=== PATIENT | male | born 1965 | race Hispanic/Latino ===

== ENCOUNTER 2020-02-07 11:14 | Inpatient (IN) | payer BC, OTHER ==
[2020-02-03 09:54] LABS: BASOPHILS % 0.2 % (0.0-1.0); EOSINOPHILS % 0.5 % (0.0-6.0); HEMOGLOBIN 13.5 g/dL (14.0-18.0); LYMPHOCYTES # (AUTO) 1.4 (1.0-3.2); LYMPHOCYTES % 21.8 % (18.0-39.1); MEAN CORPUSCULAR HGB CONC 33.8 g/dL (31-35); MEAN CORPUSCULAR VOLUME 88.9 fL (81-99); MONOCYTES # (AUTO) 0.6 (0.2-0.8); NEUTROPHILS # (AUTO) 4.4 (2.1-6.9); NEUTROPHILS % 67.9 % (38.7-80.0); PLATELET COUNT 239 x10e3/uL (140-360); RED CELL DISTRIBUTION WIDTH 12.5 % (11.7-14.4)
[2020-02-03 10:16] LABS: ANION GAP 14.8 mmol/L (8-16); BLOOD UREA NITROGEN 13 mg/dL (7-26); BUN/CREATININE RATIO 15 (6-25); CALCIUM 9.6 mg/dL (8.4-10.2); CARBON DIOXIDE 24 mmol/L (22-29); CHLORIDE 105 mmol/L (98-107); CREATININE, SERUM 0.86 mg/dL (0.72-1.25); EST GLOMERULAR FILTRATION RATE > 60 ML/MIN (60-); GLUCOSE 95 mg/dL (74-118); POTASSIUM 3.8 mmol/L (3.5-5.1); SODIUM 140 mmol/L (136-145)
[2020-02-07] VITALS (8 sets, daily range): BP systolic 141–158; BP diastolic 82–86
[~2020-02-07] VITALS: Ht 175.3 cm; Wt 101.2 kg
[~2020-02-07 11:14] MED LIST: B&O 60MG R/S 60 MG SUPP PR ONE; BICALUTAMIDE50 MG PO; CEFTRIAXONE SOD 1 GM/NS 50 ML 50 ML IV ONE; FLOMAX0.4 MG PO; GENTAMICIN 80MG/NS 100 ML 200 ML IV ONE; IOPAMIDOL 300MG/ML 50ML INFUS..BTL IV ONE; SODIUM CHLORIDE 0.9% 1000ML 1,000 ML ONE
[2020-02-07] MEDS ORDERED: ACETAMINOPHEN 1000 MG/100 ML IV PRN (13:15)
[2020-02-07] MEDS ORDERED: ONDANSETRON HCL INJ 2MG/ML 2ML 2 MG/ML VIAL IV PRN (13:15)
[2020-02-07] MEDS ORDERED: DIPHENHYDRAMINE HCL 25 MG CAP PO PRN (13:15)
[2020-02-07] MEDS ORDERED: B&O 60MG R/S 60 MG SUPP PR PRN (13:15)
[2020-02-07 14:03] LABS: BASOPHILS % 0.3 % (0.0-1.0); EOSINOPHILS % 0.4 % (0.0-6.0); HEMATOCRIT 36.5 % (38.2-49.6); HEMOGLOBIN 11.8 g/dL (14.0-18.0); LYMPHOCYTES # (AUTO) 1.6 (1.0-3.2); LYMPHOCYTES % 15.4 % (18.0-39.1); MEAN CORPUSCULAR HEMOGLOBIN 29.6 pg (28-32); MEAN CORPUSCULAR HGB CONC 32.3 g/dL (31-35); MEAN CORPUSCULAR VOLUME 91.5 fL (81-99); MONOCYTES # (AUTO) 0.5 (0.2-0.8); MONOCYTES % 4.5 % (4.4-11.3); NEUTROPHILS # (AUTO) 8.4 (2.1-6.9); NEUTROPHILS % 78.9 % (38.7-80.0); PLATELET COUNT 187 x10e3/uL (140-360); RED BLOOD COUNT 3.99 x10e6/uL (4.3-5.7); RED CELL DISTRIBUTION WIDTH 12.5 % (11.7-14.4)
[2020-02-07 14:20] LABS: ANION GAP 13.6 mmol/L (8-16); BLOOD UREA NITROGEN 9 mg/dL (7-26); BUN/CREATININE RATIO 11 (6-25); CALCIUM 7.2 mg/dL (8.4-10.2); CARBON DIOXIDE 20 mmol/L (22-29); CHLORIDE 112 mmol/L (98-107); CREATININE, SERUM 0.82 mg/dL (0.72-1.25); EST GLOMERULAR FILTRATION RATE > 60 ML/MIN (60-); GLUCOSE 102 mg/dL (74-118); POTASSIUM 3.6 mmol/L (3.5-5.1); SODIUM 142 mmol/L (136-145)
[2020-02-07] MEDS ORDERED: DEXAMETHASONE SOD PHOS INJ 4 MG/ML VIAL ONE (14:20)
[2020-02-07] MEDS ORDERED: ONDANSETRON HCL INJ 2MG/ML 2ML 2 MG/ML VIAL ONE (14:20)
[2020-02-07] MEDS ORDERED: LIDOCAINE HCL 2% LOCAL INJ 5 ML SDV VIAL INJ ONE (14:20)
[2020-02-07] MEDS ORDERED: SEVOFLURANE INHAL SOLN 250 ML PEN BTL ONE (14:20)
[2020-02-07] MEDS ORDERED: ETOMIDATE 2 MG/ML 10 ML INJ IV ONE (14:20)
[2020-02-07] MEDS ORDERED: ACETAMINOPHEN/CODEINE 300MG - 30MG TAB ONE (16:14)
[2020-02-07] MEDS: DOCUSATE SODIUM 100 MG CAP PO SCH (18:46)
[2020-02-07] MEDS: D5.45%NS/KCL 20MEQ 1,000 ML IV SCH (18:46)
[2020-02-07] MEDS ORDERED: MIDAZOLAM HCL 2 MG/2 ML VIAL ONE (20:08)
[2020-02-07] MEDS ORDERED: FENTANYL CITRATE/PF 100MCG/2 ML INJ ONE (20:08)
[2020-02-07] MEDS: PHENAZOPYRIDINE HCL 100 MG TAB PO PRN (20:28)
[2020-02-07] MEDS: ACETAMINOPHEN/CODEINE 300MG - 30MG TAB PO PRN (20:28)
[2020-02-08] VITALS (11 sets, daily range): BP systolic 115–145; BP diastolic 78–88
[2020-02-08] MEDS: D5.45%NS/KCL 20MEQ 1,000 ML IV SCH (03:17)
[2020-02-08] MEDS: ACETAMINOPHEN/CODEINE 300MG - 30MG TAB PO PRN ×2 (03:20→21:59)
[2020-02-08 05:43] LABS: BASOPHILS % 0.2 % (0.0-1.0); HEMATOCRIT 37.9 % (38.2-49.6); HEMOGLOBIN 12.4 g/dL (14.0-18.0); LYMPHOCYTES # (AUTO) 1.2 (1.0-3.2); MEAN CORPUSCULAR HEMOGLOBIN 29.6 pg (28-32); MEAN CORPUSCULAR HGB CONC 32.7 g/dL (31-35); MEAN CORPUSCULAR VOLUME 90.5 fL (81-99); MONOCYTES # (AUTO) 0.9 (0.2-0.8); MONOCYTES % 8.4 % (4.4-11.3); NEUTROPHILS # (AUTO) 8.4 (2.1-6.9); NEUTROPHILS % 79.9 % (38.7-80.0); PLATELET COUNT 213 x10e3/uL (140-360); RED BLOOD COUNT 4.19 x10e6/uL (4.3-5.7); RED CELL DISTRIBUTION WIDTH 12.6 % (11.7-14.4)
[2020-02-08 05:53] LABS: BLOOD UREA NITROGEN 12 mg/dL (7-26); BUN/CREATININE RATIO 15 (6-25); CALCIUM 8.1 mg/dL (8.4-10.2); CARBON DIOXIDE 20 mmol/L (22-29); CHLORIDE 107 mmol/L (98-107); CREATININE, SERUM 0.82 mg/dL (0.72-1.25); EST GLOMERULAR FILTRATION RATE > 60 ML/MIN (60-); GLUCOSE 113 mg/dL (74-118); SODIUM 137 mmol/L (136-145)
[2020-02-08] MEDS: DOCUSATE SODIUM 100 MG CAP PO SCH ×2 (08:26→17:27)
[2020-02-08] MEDS: TAMSULOSIN HCL 0.4 MG CAP PO SCH (09:56)
[2020-02-08] MEDS: SODIUM CHLORIDE 0.9% 1000ML 1,000 ML IV SCH ×2 (09:56→21:56)
[2020-02-08] MEDS: CEFTRIAXONE SOD 1 GM/NS 50 ML 50 ML IV SCH (12:54)
[2020-02-08] MEDS: BICALUTAMIDE 50 MG TABLET PO SCH (13:43)
--- NOTE | 2020-02-08 15:20 | History and Physical ---
The patient is status post TURP procedures secondary to enlarged prostate, incomplete emptying of the prostate with history of prostate cancer. SUMMARY: The patient is a 54 years old male with history of prostate cancer. The patient is on treatment. His prostate is enlarging. The patient has urinary retention and also nocturia with recurrent urinary tract infection. He has increase in PSA too as well. The patient is now status post TURP procedures and postoperatively the patient continued with urinary bladder irrigation. The patient is admitted for continue with treatment. PAST MEDICAL HISTORY: Prostate cancer and enlarged prostate. PAST SURGICAL HISTORY: Noncontributory. SOCIAL HISTORY: The patient does not smoke or use alcohol. No regular drug. ALLERGIES: NO KNOWN ALLERGIES. HOME MEDICATIONS: Flomax and Casodex. PHYSICAL EXAMINATION: VITAL SIGNS: Temperature 98, blood pressure 145/78, pulse rate is 42, and respiration 18. GENERAL: The patient is not in acute distress. He is awake. HEENT: Normocephalic and atraumatic. Anicteric. NECK: Supple grossly. PULMONARY: Diminished breath sounds without any wheezing or rales. CARDIOVASCULAR: S1, S2. Bradycardia, asymptomatic. ABDOMEN: Soft, nontender, non-distention. The patient has a Simmons catheter in place. The patient has continuous urinary bladder irrigation. EXTREMITIES: No cyanosis or edema. NEUROLOGIC: No focal deficit. LABORATORY DATA: Sodium is 137, potassium 4, chloride 107, bicarb 20, BUN 12, creatinine 0.8, glucose 113. WBC is 10.5, hemoglobin 12.4, hematocrit 38, platelets 213,000. IMPRESSION: 1. Status post TURP. 2. Urinary retention with recurrent infection and incomplete evacuation of urine with nocturia. 3. Prostate cancer ongoing treatment. 4. Asymptomatic bradycardia. PLAN: Continue to monitor the patient postop. Change IV fluid normal saline. Check the patient's lab work in the morning. Continue with urinary bladder irrigation. Resume home medication. Monitor the heart rate. MD XIMENA Dawson/EDL /[id number]
--- NOTE | 2020-02-08 19:00 | NUR ---
BSSR RECEIVED FROM FELY CHAND, PATIENT AOX4, THREE WAY PLASENCIA PATENT CONTINUES ON CBI, TOLERATING WELL, URINE LIGHT ORANGE COLORED AT THIS TIME, PT DENIES PAIN/DISCOMFORT AT THIS TIME CALL LIGHT WITHIN REACH 3000CC URINE NOTED
[2020-02-08] MEDS: PHENAZOPYRIDINE HCL 100 MG TAB PO PRN (21:59)
--- NOTE | 2020-02-08 22:30 | NUR ---
CBI CONTINUED, 4000CC OF PINK COLORED URINE NOTED, PATIENT SLEEPING, NO DISTRESS NOTED, TWO NEW BAG OF BLADDER IRRIGATION HUNG, IRRIGATION CONTINUED W/O DIFFICULTY
[2020-02-09] VITALS (8 sets, daily range): BP systolic 109–143; BP diastolic 72–89
--- NOTE | 2020-02-09 04:00 | NUR ---
2000 CC OUTPUT NOTED, CBI CONTINUED, URINE IS LIGHT ORANGE COLORED AT THIS TIME, NO BLOOD CLOTS NOTED PT DENIES PAIN OR DISCOMFORT AT THIS TIME, PT STATES NO BM SINCE PRIOR TO ADMISSION, ASKING FOR MD TO BE NOTIFIED, ADVISED HIM I WILL ENDORSE OVER IN THE AM
[2020-02-09 05:33] LABS: BASOPHILS % 0.3 % (0.0-1.0); EOSINOPHILS # (AUTO) 0.1 (0.0-0.4); EOSINOPHILS % 0.7 % (0.0-6.0); HEMATOCRIT 38.8 % (38.2-49.6); HEMOGLOBIN 12.5 g/dL (14.0-18.0); LYMPHOCYTES # (AUTO) 2.5 (1.0-3.2); LYMPHOCYTES % 27.7 % (18.0-39.1); MEAN CORPUSCULAR HEMOGLOBIN 30.2 pg (28-32); MEAN CORPUSCULAR HGB CONC 32.2 g/dL (31-35); NEUTROPHILS # (AUTO) 5.3 (2.1-6.9); NEUTROPHILS % 59.5 % (38.7-80.0); PLATELET COUNT 192 x10e3/uL (140-360); RED BLOOD COUNT 4.14 x10e6/uL (4.3-5.7); RED CELL DISTRIBUTION WIDTH 12.8 % (11.7-14.4)
[2020-02-09 05:43] LABS: ANION GAP 9.3 mmol/L (8-16); BLOOD UREA NITROGEN 11 mg/dL (7-26); BUN/CREATININE RATIO 11 (6-25); CALCIUM 8.4 mg/dL (8.4-10.2); CARBON DIOXIDE 30 mmol/L (22-29); CHLORIDE 105 mmol/L (98-107); EST GLOMERULAR FILTRATION RATE > 60 ML/MIN (60-); GLUCOSE 81 mg/dL (74-118); POTASSIUM 4.3 mmol/L (3.5-5.1); SODIUM 140 mmol/L (136-145)
[2020-02-09 05:44] LABS: MEAN CORPUSCULAR VOLUME 93.7 fL (81-99)
--- NOTE | 2020-02-09 07:10 | NUR ---
WALKING ROUNDS PERFORMED, VERBAL AND WRITTEN REPORT GIVEN TO MANNIE NICHOLE, UPDATED ON PATIENT POC
[2020-02-09] MEDS: BICALUTAMIDE 50 MG TABLET PO SCH (10:04)
[2020-02-09] MEDS: TAMSULOSIN HCL 0.4 MG CAP PO SCH (10:04)
[2020-02-09] MEDS: DOCUSATE SODIUM 100 MG CAP PO SCH (10:04)
[2020-02-09] MEDS: SODIUM CHLORIDE 0.9% 1000ML 1,000 ML IV SCH (10:08)
--- NOTE | 2020-02-09 11:49 | NUR ---
hong discontinued per Hampel's orders. tip intact. serial urines ordered; instructed pt to use urinal. will continue to monitor.
[2020-02-09] MEDS: ACETAMINOPHEN/CODEINE 300MG - 30MG TAB PO PRN (12:39)
[2020-02-09] MEDS: CEFTRIAXONE SOD 1 GM/NS 50 ML 50 ML IV SCH (12:40)
[2020-02-09] MEDS ORDERED: ONDANSETRON HCL 4 MG ORAL DISINTEGRATING TAB PO PRN (14:00)
[2020-02-09] MEDS ORDERED: Ardosons PO (15:11)
[2020-02-09] MEDS ORDERED: [UNRECOGNIZED DRUG - OTHER] PO PRN (15:15)
--- NOTE | 2020-02-09 16:03 | NUR ---
spoke with Dr. Cha; informed him pt urine appears clear after 5 serial urines. MD states pt can be discharged from his standpoint.
[2020-02-09] MEDS ORDERED: LEVAQUIN500 MG PO (17:00)
[2020-02-09] MEDS ORDERED: TYLENOL WITH C1 EACH PO (17:00)
--- NOTE | 2020-03-25 00:50 | Operative Report ---
DATE OF PROCEDURE: 02/07/2020 SURGEON: David Cha MD PREOPERATIVE DIAGNOSES: 1. Obstructive benign prostatic hyperplasia. 2. Incomplete bladder emptying. POSTOPERATIVE DIAGNOSES: 1. Obstructive benign prostatic hyperplasia. 2. Incomplete bladder emptying. OPERATIONS PERFORMED: 1. Cystourethroscopy with bilateral ureteral catheterization and retrograde ureteropyelography (separate procedure performed for the incomplete bladder emptying). 2. Interpretation of retrograde ureteropyelography. 3. Supervision of fluoroscopy, no radiologist present. 4. Cystourethroscopy with staged transurethral resection of the prostate utilizing the plasma button electrode. ANESTHESIA: General. COMPLICATIONS: None. CLINICAL SUMMARY: Aileen Billingsley is a 54-year-old man with a 45 g prostate. He has prostate cancer and is pending a pelvic lymph node dissection. The patient received a Lupron injection a month earlier. His PSA is greater than 40. He is brought for the above procedure. He is aware of the risks of bleeding, infection, injury to adjacent structures, need for additional procedures, and elected to proceed. He also is aware of the retrograde ejaculation, impotence, and incontinence risks. PROCEDURE IN DETAIL: Informed consent was verified. Aileen Billingsley was properly identified, taken to the operating room, placed on the cystoscopy table in supine position. Anesthesia was uneventfully begun. The patient was then carefully and gently repositioned in the dorsal lithotomy position with all pressure points well padded. His genitalia were prepared and draped in usual sterile fashion. The cystoscope sheath with the visual obturator in place was atraumatically inserted into the patient's urethra. It was guided to unremarkable distal urethra through the normal sphincteric region through the prostate bed, which was significant for bilobar prostatic hypertrophy with a small median lobe and kissing lateral lobes. We entered the patient's bladder. Panendoscopy revealed grade 1 trabeculations, but no tumors, no stones, and no diverticula. Normally positioned configured ureteral orifices were identified. An 8-Romanian catheter was used to cannulate each ureter and retrograde ureteral pyelograms were performed. Interpretation of retrograde ureteropyelography contrast was instilled in retrograde fashion bilaterally. There were no tumors, no stones, and no diverticula. Unobstructed drainage was observed bilaterally, fluoroscopically. The cystoscope was withdrawn. The resectoscope was atraumatically placed utilizing an obturator. We proceeded by performing vaporization of prostate utilizing the plasma button electrode. Vaporization was carried out from the bladder neck to maneuver past the verumontanum. First, we eliminated the median lobe, then we worked on both lateral lobes down to the surgical capsule. Pinpoint electrocautery was utilized to achieve hemostasis. The resectoscope was withdrawn. A Simmons catheter was placed and was placed in continuous bladder irrigation. A Belladonna and Opium suppository were placed revealing a 45 g prostate that is smooth, nonfluctuant without any nodules. The patient was uneventfully reversed from anesthesia and taken to recovery room in stable condition. We will proceed with routine postoperative care and we will plan on bringing the patient back to the operating room, as he is scheduled to perform pelvic lymphadenectomy. David Cha MD [place]/MODL /[id number]
== END 2020-02-09 17:44 | disposition home or self-care (01) | DRG 713 ==
LOC: OR 11:14 → PACU V 13:15 → MED/SURG 17:00
PROVIDERS: ADMIT Internal Medicine; ATTEND Internal Medicine
PROC: BT141ZZ Fluoroscopy of Kidneys, Ureters and Bladder using Low Osmolar Contrast (ICD-10-PCS; 2020-02-07)
PROC: 0VB08ZZ Excision of Prostate, Via Natural or Artificial Opening Endoscopic (ICD-10-PCS; principal; 2020-02-07 11:30)
PROC: 0T788ZZ Dilation of Bilateral Ureters, Via Natural or Artificial Opening Endoscopic (ICD-10-PCS; 2020-02-07 11:30)
DX: N40.1 Benign prostatic hyperplasia with lower urinary tract symptoms (principal); N13.8 Other obstructive and reflux uropathy; R33.8 Other retention of urine; C61 Malignant neoplasm of prostate; R00.1 Bradycardia, unspecified; Z11.59 Encounter for screening for other viral diseases; E66.9 Obesity, unspecified; Z68.32 Body mass index [BMI] 32.0-32.9, adult
CPT/HCPCS: 36415; 74420; 80048; 83735; 84152; 85025; 93005; C1758; J0696; J1100; J1580; J2001; J2250; J2405; J3010; J7030; U0002